=== PATIENT | female | born 1990 | race Caucasian/White ===

== ENCOUNTER 2024-06-30 20:30 | Inpatient (IN) | payer OTHER, SELFPAY ==
[2024-06-30] VITALS (32 sets, daily range): BP systolic 89–188; BP diastolic 58–101; PULSE 68–107; TEMP 36.7–36.8; O2SAT 94–100; BMI 35.2
[2024-06-30 17:59] LABS: Hematocrit 35.3 % (33.0-51.0); Mean Corpuscular HGB Conc 34 gm/dL (32-36); Mean Corpuscular Hemoglobin 28 pg (26-34); Mean Corpuscular Volume 82 fL (80-100); Platelet Count* 253 K/uL (140-440); White Blood Count* 8.93 K/uL (4.50-11.00)
[2024-06-30 18:19] LABS: Alanine Aminotransferase* 17 U/L (4-35); Aspartate Amino Transferase* 27 U/L (12-35); Blood Urea Nitrogen* 9 mg/dL (5-24); Creatinine* 0.6 mg/dL (0.5-1.5); Estimated Glomerular Filt Rate 122 ml/min
[2024-06-30 18:32] LABS: Slide Review Reflex No
[2024-06-30 18:36] LABS: Total Protein Urine 14 mg/dL
[2024-06-30 18:37] LABS: Creatinine Urine 21.2 mg/dL; Protein Creatinine Ratio Urine 0.66 (0-0.19)
[2024-06-30] MEDS: LABETALOL HCL 5 MG/ML inj IVP (19:04)
[2024-06-30] MEDS: MAGNESIUM IV 4 GM/100 ML PIGGYBACK IVPB (19:12)
[2024-06-30] MEDS: LACTATED RINGERS 1000 ML 1,000 ML 200 ML IV (19:12)
--- NOTE | 2024-06-30 19:14 | PM.OBHPLI ---
OB - H&P: HPI Labor/Induction History of Present Illness Date Seen: 06/30/24 Chief Complaint: hypertension Chief complaint: Maternity : 1 Para: 0 Indications for induction: pre-eclampsia Narrative: Stepan Vinson is a 33 year old female 1 para 0 at 39.1 weeks gestation by 8w6d US, who presents with hypertension and headaches. Blood pressures in clinic 144/88 and 148/80, sent to center for rule out pre-Eclampsia. In triage, patient had blood pressures in triage 149/90, 137/83, 150/97 and 161/94. Labs notable for elevated PCR 0.66. Normal Cr 0.6, plt 253, and AST/ALT 27/17. She has had intermittent headaches all week. Denies vision changes. Unfortunately in triage BP was recheck consecutively every 2 minutes after 161/94 with elevating BPs which instigated nursing staff to give labetalol 20mg IV one time. Patient noted to not feel well. BP was recheck and dropped to 89/54. Patient was positioned supine with leftward tilt and given IVF. BP normalized at 127/82. She has had an otherwise uncomplicated . She had a cervical check in clinic: 1.5/20%/-3. Rh positive. GBS negative. Resolution of prior anemia - most recent hemoglobin 12.0 today. She is on lexapro for anxiety. History of Present Dating criteria: based on 1st trimester US only care: good care Ultrasounds: normal 1st trimester US complications: preeclampsia Labs Blood type: A (+) positive Rubella: immune RPR/VDLR: nonreactive GBS status: negative HBsAG: negative Review of Systems Status of ROS: Reports: 10 or more systems reviewed and unremarkable except as noted in History and below Narrative: Denies headache, visual changes, facial edema, epigastric/RUQ pain, N/V, dysuria, or diarrhea. Meds Home Medications and Allergies Home Medications ?Medication ?Instructions ?Recorded ?Confirmed ?Type escitalopram oxalate 10 mg tablet 15 mg PO QAM 06/30/24 06/30/24 History ferrous sulfate 325 mg (65 mg 325 mg PO DAILY 06/30/24 06/30/24 History iron) tablet,delayed release hydroxyzine HCl 25 mg tablet 12.5 - 25 mg PO insomnia 06/30/24 History Allergies Allergy/AdvReac Type Severity Reaction Status Date / Time No Known Drug Allergies Allergy Verified 06/30/24 18:19 OB - H&P: Exam Physical Exam: Vital signs: Temp Pulse BP Pulse Ox 98.3 F 80 127/62 100 06/30/24 17:20 06/30/24 19:12 06/30/24 19:12 06/30/24 17:23 Narrative: Gen: alert, oriented, NAD Heart: Regular rate and rhythm, normal S1 and S2, no murmurs/rubs/gallops Lungs: clear to auscultation bilaterally without crackles or wheezes Abd: gravid, nontender, soft to palpation between contractions Ext: warm, dry, without edema bilaterally Vaginal exam: 1.5 cm / 20 % / -3 / vertex per PCP in clinic Membranes: intact FHT: Baseline: 145-155 bpm Variability: moderate to Acceleration: present Decelerations: absent [place]: NO contractions OB - Results Labs Labs: Short CBC 06/30/24 Range/Units 17:45 WBC 8.93 (4.50-11.00) K/uL Hgb 12.0 (12.0-16.0) gm/dL Hct 35.3 (33.0-51.0) % Plt Count 253 (140-440) K/uL BMP 06/30/24 17:45 BUN 9 Creatinine 0.6 Liver Function 06/30/24 Range/Units 17:45 AST 27 (12-35) U/L ALT 17 (4-35) U/L OB - Problem Based A/P Additional Plan (1) Term : Problem details: Uncomplicated , GBS negative, Rh positive Status: Acute (2) Severe preeclampsia: Problem details: Elevated BP in clinic with associated headaches, max BP in triage 161/94, PCR elevated at 0.66, all other labs normal Status: Acute Plan: - Magnesium for seizure prophylaxis - Labetalol protocol for BP >160 systolic, >110 diastolic, if blood pressure drops significantly we could consider starting with a 10mg dose or transition to alternative therapies - Labs q6h Plan Admit for severe preeclampsia with induction. Anticipate Continuous monitoring Analgesia: PRN, GBS prophylaxis unnecessary Delivery/Labor/Induction Plan Plan: expectant management
[2024-06-30 19:37] LABS: Aspartate Amino Transferase* 40 U/L (12-35)
[2024-06-30] MEDS: MAGNESIUM Infusion 40 GM/1,000 ML IV.SOLN IVPB (19:42)
[2024-06-30] MEDS: miSOPROStoL 25 MCG/0.25 TABLET VAGINAL ×2 (20:06→23:26)
[2024-07-01] VITALS (68 sets, daily range): BP systolic 81–166; BP diastolic 49–101; PULSE 65–171; RESP 14–18; TEMP 36.3–37.2; O2SAT 99–100
[2024-07-01 01:31] LABS: Aspartate Amino Transferase* 25 U/L (12-35)
[2024-07-01] MEDS: miSOPROStoL 25 MCG/0.25 TABLET VAGINAL ×3 (02:37→09:59)
[2024-07-01] MEDS: ACETAMINOPHEN 500 MG TABLET 1000 MG PO ×2 (02:46→07:51)
[2024-07-01 03:11] LABS: Appearance Urine Clear (Clear); Bilirubin Urine Negative (Negative); Blood Urine 1+ (Negative); Color Urine Yellow (Yellow); Glucose Urine Negative (Negative); Ketones Urine Negative (Negative); Leukocyte Esterase Urine Trace (Negative); Nitrite Urine Negative (Negative); Protein Urine Negative (Negative); Urobilinogen Urine 0.2 (0.2-1.0); pH Urine 6.5 (5.0-8.5)
[2024-07-01 03:18] LABS: RBC Urine 0-2 (0-2); WBC Urine 0-2 (0-5)
[2024-07-01 03:19] LABS: Bacteria Urine Few; Squamous Epithelial Cell Urine Few (None-Few)
[2024-07-01] MEDS: LACTATED RINGERS 1000 ML 1,000 ML 75 ML IV (06:50)
--- NOTE | 2024-07-01 06:51 | P.OBPN_ITS ---
Subjective Time Seen by Provider: 06:51 Date Seen: 07/01/24 Narrative: pt just received 4th dose vaginal cytotec. Reports starting feel more contractions, rates 3/10. Has had headache off and on, received Tylenol recently and reports helping. Feels nauseous now. No vomiting. Per RN, BP's below severe range since initial labetalol x 1. 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 -On magnesium -preeclamptic labs [id number], on admit AST 27 then increased 40, most recent 1am down to 25. Repeat labs due again now -4th cytotec given, discussed with pt and nursing plan for further cytotec or pitocin based on clinical response. All ?'s answered -known GBS negative -I updated OB surgeon on today
[2024-07-01] MEDS: ONDANSETRON 2 MG/ML inj 4 MG IV ×3 (06:52→20:30)
[2024-07-01 07:27] LABS: Hematocrit 34.2 % (33.0-51.0); Hemoglobin* 11.7 gm/dL (12.0-16.0); Mean Corpuscular HGB Conc 34 gm/dL (32-36); Mean Corpuscular Hemoglobin 28 pg (26-34); Mean Corpuscular Volume 82 fL (80-100); Platelet Count* 230 K/uL (140-440); Red Blood Count 4.17 m/uL (4.00-5.20); White Blood Count* 8.96 K/uL (4.50-11.00)
[2024-07-01 07:29] LABS: Slide Review Reflex No
[2024-07-01 07:42] LABS: Alanine Aminotransferase* 16 U/L (4-35); Aspartate Amino Transferase* 25 U/L (12-35); Creatinine* 0.6 mg/dL (0.5-1.5); Est. Creatinine Clearance* 116.24; Estimated Glomerular Filt Rate 122 ml/min
[2024-07-01 13:11] LABS: Hematocrit 32.5 % (33.0-51.0); Hemoglobin* 11.4 gm/dL (12.0-16.0); Mean Corpuscular HGB Conc 35 gm/dL (32-36); Mean Corpuscular Hemoglobin 29 pg (26-34); Mean Corpuscular Volume 82 fL (80-100); Platelet Count* 242 K/uL (140-440); Red Blood Count 3.98 m/uL (4.00-5.20); White Blood Count* 9.52 K/uL (4.50-11.00)
[2024-07-01 13:14] LABS: Slide Review Reflex No
[2024-07-01 13:36] LABS: Alanine Aminotransferase* 15 U/L (4-35); Aspartate Amino Transferase* 29 U/L (12-35); Creatinine* 0.6 mg/dL (0.5-1.5); Est. Creatinine Clearance* 116.24; Estimated Glomerular Filt Rate 122 ml/min
[2024-07-01] MEDS: OXYTOCIN 30 unit/500 ML in NS 30 UNIT/500 ML BAG IVPB (14:14)
[2024-07-01] MEDS: MAGNESIUM Infusion 40 GM/1,000 ML IV.SOLN IVPB (15:41)
[2024-07-01] MEDS: LACTATED RINGERS 1000 ML 1,000 ML IV (16:35)
[2024-07-01] MEDS: ROPIVACAINE 0.2% 100 ml 100 ML 12 MG EPIDURAL (16:59)
[2024-07-01] MEDS: BUPIVACAINE 0.25% PF 10 ML 10 ML ML EPIDURAL (17:01)
--- NOTE | 2024-07-01 17:07 | P.ANBPRC_ITS ---
PFSH PFSH Social History What is your current living situation?: I presently have a place to live Problems where you live: no known problems In the past 12 months, utilities in danger of being shut off: no In the past 12 mos, have been you worried that your food would run out before you had money to buy more?: never true In the past 12 mos, the food you bought just didn't last and you didn't have money to buy more?: never true Smoking Status: Never smoker How often does anyone, including family, friends and others, physically hurt you : never How often does anyone, including family, friends and others, insult or talk down to you: never How often does anyone, including family, friends and others, threaten you with harm: never How often does anyone, including family, friends and others, scream or curse at you: never Meds Home Medications and Allergies Home Medications ?Medication ?Instructions ?Recorded ?Confirmed ?Type escitalopram oxalate 10 mg tablet 15 mg PO QAM 06/30/24 06/30/24 History ferrous sulfate 325 mg (65 mg 325 mg PO DAILY 06/30/24 06/30/24 History iron) tablet,delayed release hydroxyzine HCl 25 mg tablet 12.5 - 25 mg PO .PRN insomnia 06/30/24 07/01/24 History Allergies Allergy/AdvReac Type Severity Reaction Status Date / Time No Known Drug Allergies Allergy Verified 06/30/24 18:19 Results Labs Labs: Laboratory Results - last 24 hr 06/30/24 06/30/24 06/30/24 17:31 17:45 18:48 WBC 8.93 RBC 4.30 Hgb 12.0 Hct 35.3 MCV 82 MCH 28 MCHC 34 Plt Count 253 BUN 9 Creatinine 0.6 Estimated Creat Clear Estimated GFR 122 AST 27 40 H ALT 17 Urine Color Urine Appearance Urine pH Ur Specific [place] Urine Protein Urine Glucose (UA) Urine Ketones Urine Blood Urine Nitrite Urine Bilirubin Urine Urobilinogen Ur Leukocyte Esterase Urine RBC Urine WBC Ur Squamous Epith Cells Urine Bacteria Urine Creatinine 21.2 Protein/Creatinin Ratio 0.66 H Urine Total Protein 14 Blood Type Antibody Screen 07/01/24 07/01/24 07/01/24 01:10 02:51 07:04 WBC 8.96 RBC 4.17 Hgb 11.7 L Hct 34.2 MCV 82 MCH 28 MCHC 34 Plt Count 230 BUN Creatinine 0.6 Estimated Creat Clear 116.24 Estimated GFR 122 AST 25 25 ALT 16 Urine Color Yellow Urine Appearance Clear Urine pH 6.5 Ur Specific [place] 1.010 Urine Protein Negative Urine Glucose (UA) Negative Urine Ketones Negative Urine Blood 1+ A Urine Nitrite Negative Urine Bilirubin Negative Urine Urobilinogen 0.2 Ur Leukocyte Esterase Trace A Urine RBC 0-2 Urine WBC 0-2 Ur Squamous Epith Cells Few Urine Bacteria Few A Urine Creatinine Protein/Creatinin Ratio Urine Total Protein Blood Type A Positive Antibody Screen NEGATIVE 07/01/24 12:54 WBC 9.52 RBC 3.98 L Hgb 11.4 L Hct 32.5 L MCV 82 MCH 29 MCHC 35 Plt Count 242 BUN Creatinine 0.6 Estimated Creat Clear 116.24 Estimated GFR 122 AST 29 ALT 15 Urine Color Urine Appearance Urine pH Ur Specific [place] Urine Protein Urine Glucose (UA) Urine Ketones Urine Blood Urine Nitrite Urine Bilirubin Urine Urobilinogen Ur Leukocyte Esterase Urine RBC Urine WBC Ur Squamous Epith Cells Urine Bacteria Urine Creatinine Protein/Creatinin Ratio Urine Total Protein Blood Type Antibody Screen Vital Signs Vital Signs: Last Vital Signs Temp 97.9 F 07/01/24 16:16 Pulse 84 07/01/24 17:05 Resp 16 07/01/24 07:03 BP 133/72 07/01/24 17:05 Pulse Ox 100 07/01/24 16:55 Weight: 93.621 kg Height: 162.56 cm Anesthesia Procedures Epidural Insertion Patient Location: OB Start Time: 16:30 Stop Time: 17:07 Start Date: 07/01/24 Stop Date: 07/01/24 Reason for Block: procedure for pain Patient Position: sitting Performed By: aSvage Morris Preanesthetic Checklist: IV checked, risks and benefits discussed, monitors and equipment checked, pre-op evaluation, timeout performed and anesthesia consent Prep: chlorhexidine gluconate Monitoring: blood pressure monitoring, continuous pulse oximetry and heart rate Approach: midline Vertebral Space: lumbar (1-5) Epidural Technique: BEATRIZ saline Needle Type: Tuohy needle Injection Technique: continuous catheter Needle gauge: 17 Needle Length (cm): 10 cm Needle Insertion Depth (cm): 8 Catheter Gauge: 19 Catheter Type: multi-orifice Catheter at skin depth (cm): 14 Test Dose Result: negative and lidocaine 1.5% with epinephrine 1 to 200,000
[2024-07-01] MEDS: PHENYLEPHRINE 100 MCG/ML SYRINGE IVP ×2 (17:14→17:24)
--- NOTE | 2024-07-01 17:51 | P.OBPN_ITS ---
Subjective Time Seen by Provider: 17:45 Date Seen: 07/01/24 Narrative: pt requested and received epidural, comfortable. feels pressure with contractions. no pain. No headache. +nausea. SROM's with mec fluid around 1556, had few decels around SROM. Then resolved. Had elevated bp's around epidural process in 160's range but repeat each time <160. After epidural, developed hypotension and recurrent late decels. 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
[2024-07-01 18:59] LABS: Hematocrit 35.3 % (33.0-51.0); Hemoglobin* 12.1 gm/dL (12.0-16.0); Mean Corpuscular HGB Conc 34 gm/dL (32-36); Mean Corpuscular Hemoglobin 28 pg (26-34); Mean Corpuscular Volume 82 fL (80-100); Platelet Count* 258 K/uL (140-440); Red Blood Count 4.31 m/uL (4.00-5.20)
[2024-07-01 19:01] LABS: Slide Review Reflex No
[2024-07-01 19:26] LABS: Alanine Aminotransferase* 16 U/L (4-35); Aspartate Amino Transferase* 28 U/L (12-35); Creatinine* 0.6 mg/dL (0.5-1.5); Est. Creatinine Clearance* 116.24; Estimated Glomerular Filt Rate 122 ml/min
--- NOTE | 2024-07-01 22:09 | W.PM.OBVAGDE ---
OB Procedure Vag Delivery Mother Details Mother Details: The patient is a 33 year-old, 1, Para 1, admitted on 06/30/24 at 39 1/7wks gestation for induction due to severe preeclampsia. : 1 Weeks Gestation: 39.2 Admission Date: 06/30/24 Additional Details Amniotic Membrane Status: SROM Amniotic Membrane Rupture Date: 07/01/24 Amniotic Membrane Rupture Time: 15:56 Amniotic Membrane Fluid Description: Meconium Stained Analgesia/Anesthesia Type: Epidural Waterbirth: No Pitcoin: Yes Intrapartal Events: Labor Induction and Distress Induction Method: per misoprostol protocol and per pitocin protocol Labor Onset: 18:30 Complete: 20:33 Pushin:40 Heart: heart tones during second stage were 150's with moderate variability with decels developing after each contraction and then had prolonged decel in 60's and altagracia espinosa called, FHT did recover on hands and knees and taken to OR with another prolonged decel in 60's which recovered Delivery Details Delivery Date: 07/01/24 Delivery Time: 21:19 Route of delivery: vacuum extraction Gender: Female Infant Viability: Alive; Heart Rate Present Delivery Details: The patient is a 33 year-old admitted on 05/31/24 at 39 Weeks, 1 Days gestation for induction due to severe preeclampsia.? Cervical exam on admission was 1 cm with membranes intact in vertex presentation.? She was not chiquis.? heart rate demonstrated a category 1 tracing. She was given cytotec vaginally x 5 doses then started on pitocin. SROM occurred at 1556 with meconium fluid. ? Labor Analgesia:? Epidural ? Pitocin:? Yes ? Labor onset:? 1829 ? Complete:? 2032 ? Pushing:? 2039 ? heart tones during second stage were heart tones during second stage were 150's with moderate variability with decels developing after each contraction and then had prolonged decel in 60's and code francisca called, FHT did recover on hands and knees and taken to OR with another prolonged decel in 60's which recovered. Dr Elly Montoya was present who agreed with attempting vacuum delivery. I applied vacuum and pulled with 1 set contractions/pushing then removed vacuum. FHT reassessed and remained 120's. Vacuum reapplied with next contraction and pt delivered viable female. ? At 2118 a viable female infant delivered in vertex presentation over intact perineum via vacuum assisted vaginal delivery.? was placed on maternal abdomen.? Cord was clamped and cut after a 30 second delay.? taken to warmer.? 7 at 1 minute and 9 at 5 minutes.? Shoulder dystocia: no.? Nuchal cord: no. Infant weight 7#11oz ? Placenta delivered spontaneously and complete with a 3 vessel cord. ? Mother and infant were stable after delivery. ? Lacerations:? periurethral, repaired with 4-0 vicryl. ? Blood loss: 200 mL. Blood loss measurement type: EBL ? Sponge and needles counts are correct. 1 Minute Interval Total Score: 7 5 Minute Interval Total Score: 9 Event Summary Status: Mother and were stable after delivery.
[2024-07-02] VITALS (12 sets, daily range): BP systolic 116–136; BP diastolic 72–88; PULSE 72–92; RESP 16–18; TEMP 36.5–36.9; O2SAT 98–100
[2024-07-02 01:03] LABS: Hematocrit 34.6 % (33.0-51.0); Hemoglobin* 11.9 gm/dL (12.0-16.0); Mean Corpuscular HGB Conc 34 gm/dL (32-36); Mean Corpuscular Hemoglobin 28 pg (26-34); Mean Corpuscular Volume 82 fL (80-100); Platelet Count* 246 K/uL (140-440); Red Blood Count 4.21 m/uL (4.00-5.20); White Blood Count* 15.57 K/uL (4.50-11.00)
[2024-07-02 01:05] LABS: Slide Review Reflex No
[2024-07-02] MEDS: ACETAMINOPHEN 500 MG TABLET 1000 MG PO ×3 (01:19→17:01)
[2024-07-02 01:31] LABS: Aspartate Amino Transferase* 27 U/L (12-35); Creatinine* 0.6 mg/dL (0.5-1.5); Est. Creatinine Clearance* 116.24; Estimated Glomerular Filt Rate 122 ml/min
[2024-07-02 01:50] LABS: Alanine Aminotransferase* 22 U/L (4-35)
[2024-07-02 07:06] LABS: Hematocrit 33.9 % (33.0-51.0); Hemoglobin* 11.7 gm/dL (12.0-16.0); Mean Corpuscular HGB Conc 35 gm/dL (32-36); Mean Corpuscular Hemoglobin 28 pg (26-34); Mean Corpuscular Volume 82 fL (80-100); Platelet Count* 262 K/uL (140-440); Red Blood Count 4.13 m/uL (4.00-5.20); White Blood Count* 14.34 K/uL (4.50-11.00)
[2024-07-02 07:07] LABS: Slide Review Reflex No
[2024-07-02 07:26] LABS: Alanine Aminotransferase* 15 U/L (4-35); Aspartate Amino Transferase* 26 U/L (12-35); Creatinine* 0.6 mg/dL (0.5-1.5); Est. Creatinine Clearance* 116.24; Estimated Glomerular Filt Rate 122 ml/min
--- NOTE | 2024-07-02 08:15 | PM.OBPNVD1 ---
OB - PN:Subj Subjective Date Seen: 07/02/24 Interval history: Stepan is a 33 yo pp day #1 with severe preeclampsia. She is doing well this morning. Has some pain with urination due to a periurethral laceration, but is otherwise feeling better this morning. Swelling in legs has decreased significantly. No concerns this morning. Patient comments OB post-: no complaints and pain well controlled [place] infant status: and doing well [place] feeding status: exclusively OB - PN: Obj Exam Physical Exam: Vital signs: Temp Pulse Resp BP Pulse Ox O2 Del Method 97.9 F 84 18 130/80 99 Room Air 07/02/24 03:03 07/02/24 06:38 07/02/24 03:03 07/02/24 06:38 07/01/24 23:27 07/02/24 03:03 Constitutional: Constitutional: no acute distress Routine Abdominal Exam: Fundus: Present firm Comments: 2 cm below umbilicus Detailed Lower Extremity Exam: Comments: no swelling in LEs Routine Neurological Exam: Neurological: Present alert OB - PN: Obj Data Labs Labs: Laboratory Results - last 24 hr 07/01/24 07/01/24 07/02/24 12:54 18:46 00:55 WBC 9.52 11.20 H 15.57 H RBC 3.98 L 4.31 4.21 Hgb 11.4 L 12.1 11.9 L Hct 32.5 L 35.3 34.6 MCV 82 82 82 MCH 29 28 28 MCHC 35 34 34 Plt Count 242 258 246 Creatinine 0.6 0.6 0.6 Estimated Creat Clear 116.24 116.24 116.24 Estimated GFR 122 122 122 AST 29 28 27 ALT 15 16 22 07/02/24 06:58 WBC 14.34 H RBC 4.13 Hgb 11.7 L Hct 33.9 MCV 82 MCH 28 MCHC 35 Plt Count 262 Creatinine 0.6 Estimated Creat Clear 116.24 Estimated GFR 122 AST 26 ALT 15 OB - PN: A/P Delivery Assessment and Plan (1) Term : Problem details: Uncomplicated , GBS negative, Rh positive Status: Acute (2) Severe preeclampsia: Problem details: Elevated BP in clinic with associated headaches, max BP in triage 161/94, PCR elevated at 0.66, all other labs normal Status: Acute Plan day: 1 Plan: routine care Comments: Continue mag to complete 24 hours. Discussed BP management, but so far BPs below treatment levels. Labs are normal. Likely discharge 07/04 if continues to do well
[2024-07-02] MEDS: DOCUSATE SODIUM 100 MG CAPSULE PO (08:30)
--- NOTE | 2024-07-02 10:26 | PM.ANPOST ---
Post Anesthesia Note Post Anesthesia Note Patient seen: Inpatient Respiratory Status: adequate Cardiovascular Status: adequate Mental Status: baseline Pain: adequate Temp: baseline Anesthetic awareness: N/A Complications: none Follow care: none
[2024-07-02] MEDS: MAGNESIUM Infusion 40 GM/1,000 ML IV.SOLN IVPB (12:03)
[2024-07-02] MEDS: IBUPROFEN 600 MG TABLET PO ×2 (12:57→20:37)
[2024-07-03] VITALS (9 sets, daily range): BP systolic 113–157; BP diastolic 74–97; PULSE 60–78; RESP 16–18; TEMP 36.6–36.9; O2SAT 97
[2024-07-03 02:37] LABS: Rapid Plasma Reagin (RPR) Non Reactive (Non Reactive)
[2024-07-03] MEDS: DOCUSATE SODIUM 100 MG CAPSULE PO (09:52)
[2024-07-03] MEDS: ACETAMINOPHEN 500 MG TABLET 1000 MG PO ×2 (09:52→15:59)
--- NOTE | 2024-07-03 10:54 | PM.OBPNVD1 ---
OB - PN:Subj Subjective Date Seen: 07/03/24 Interval history: Stepan is a 33 yo pp day #2 with severe preeclampsia. She is doing well this morning. She is feeling better this morning. Swelling in legs has decreased significantly. Nursing is going ok, having some difficulty with latch, but otherwise no concerns. She has been on lexapro in the past, and is wanting to start this post . Patient comments OB post-: no complaints status: [place] feeding status: exclusively OB - PN: Obj Exam Physical Exam: Vital signs: Temp Pulse Resp BP Pulse Ox O2 Del Method 98.1 F 60 17 137/84 97 Room Air 07/03/24 09:19 07/03/24 09:19 07/03/24 09:19 07/03/24 09:19 07/03/24 09:19 07/03/24 09:19 Constitutional: Constitutional: no acute distress Routine Abdominal Exam: Abdominal: Present soft Fundus: Present firm Comments: 2 cm below umbilicus Routine Psychiatric Exam: Psychiatric: Present normal affect and normal thought process OB - PN: Obj Data Labs Labs: Laboratory Results - last 24 hr 07/01/24 01:10 RPR Screen Non Reactive OB - PN: A/P Delivery Assessment and Plan (1) Term : Problem details: Uncomplicated , GBS negative, Rh positive Status: Acute (2) Severe preeclampsia: Problem details: Elevated BP in clinic with associated headaches, max BP in triage 161/94, PCR elevated at 0.66, all other labs normal Status: Acute Assessment and Plan: Will continue to monitor until off mag x24 hours. Continue close BP monitoring and would start antihypertensives for consistent BPs >135/90 Plan day: 2 Plan: routine care Comments: Likely d/c tomorrow morning if doing well
[2024-07-03] MEDS: NIFEdipine 30 MG TAB.ER.24 PO ×2 (14:06→23:48)
[2024-07-03] MEDS: IBUPROFEN 600 MG TABLET PO (23:41)
[2024-07-04] VITALS (16 sets, daily range): BP systolic 122–155; BP diastolic 75–96; PULSE 68–88; RESP 16–18; TEMP 36.6–37; O2SAT 97–98
[2024-07-04 06:19] LABS: Hematocrit 39.5 % (33.0-51.0); Hemoglobin* 13.3 gm/dL (12.0-16.0); Mean Corpuscular HGB Conc 34 gm/dL (32-36); Mean Corpuscular Hemoglobin 28 pg (26-34); Mean Corpuscular Volume 83 fL (80-100); Platelet Count* 281 K/uL (140-440); Red Blood Count 4.74 m/uL (4.00-5.20); White Blood Count* 10.06 K/uL (4.50-11.00)
[2024-07-04 06:20] LABS: Slide Review Reflex No
[2024-07-04 06:34] LABS: INR 0.82 (0.91-1.10); Prothrombin Time 11.8 Seconds
[2024-07-04 06:35] LABS: Partial Thromboplastin Time* 27 Seconds (23-33)
[2024-07-04 06:40] LABS: Fibrinogen* 642 mg/dL (200-450)
[2024-07-04 06:42] LABS: Alanine Aminotransferase* 20 U/L (4-35); Aspartate Amino Transferase* 32 U/L (12-35); Blood Urea Nitrogen* 12 mg/dL (5-24); Creatinine* 0.6 mg/dL (0.5-1.5); Est. Creatinine Clearance* 116.24; Estimated Glomerular Filt Rate 122 ml/min
--- NOTE | 2024-07-04 08:01 | PM.OBDSVD1 ---
DS: Providers Provider Date Seen: 07/04/24 Date of admission: 06/30/24 20:30 Primary care physician: Not a Local Provider Admitting Clinician: Jana Pack DO Attending Physician on discharge: Jana Pack DO DS: Diagnosis Discharge Diagnosis (1) Vaginal delivery: Status: Acute (2) Severe preeclampsia: Status: Acute Problem details: Elevated BP in clinic with associated headaches, max BP in triage 161/94, PCR elevated at 0.66, all other labs normal (3) Term : Status: Acute Problem details: Uncomplicated , GBS negative, Rh positive Exam Const: Vital Signs, click to edit/add: Vital Signs - 24 hr 07/03/24 09:19 07/03/24 13:15 07/03/24 13:30 Temperature 98.1 F 98.5 F Pulse Rate [Pulse Oximeter] 60 78 Respiratory Rate 17 17 Blood Pressure [Le ft Arm] 137/84 157/92 H 156/83 H Pulse Oximetry 97 97 Oxygen Delivery Me thod Room Air Room Air 07/03/24 15:28 07/03/24 16:36 07/03/24 21:03 Temperature 98.3 F Pulse Rate [Pulse Oximeter] 74 74 Respiratory Rate 16 18 Blood Pressure [Le ft Arm] 152/97 H 131/80 113/83 Pulse Oximetry 97 Oxygen Delivery Me thod Room Air Room Air 07/03/24 23:35 07/03/24 23:42 07/04/24 02:35 Temperature 97.9 F 98.6 F Pulse Rate [Pulse Oximeter] 78 88 Respiratory Rate 18 18 Blood Pressure [Le ft Arm] 143/86 H 144/86 H 146/88 H Pulse Oximetry 97 Oxygen Delivery Me thod Room Air Room Air 07/04/24 02:52 07/04/24 04:30 Temperature Pulse Rate [Pulse Oximeter] Respiratory Rate Blood Pressure [Le ft Arm] 144/89 H 122/75 Pulse Oximetry Oxygen Delivery Me thod Common normals: no apparent distress, average body habitus and oriented x3 Resp: Common normals: normal respiratory effort GI: Common normals: Normal to inspection, nondistended, normoactive bowel sounds present and soft to palpation Palpation: soft Other: Uterus firm 2 cm below umbilicus Extremity: Common normals: normal to inspection, full ROM and no pedal edema Neuro: Common normals: oriented x3 Psych: Common normals: mental status grossly normal and speech normal Appearance: grossly normal Attitude: engaged Activity/motor behavior: appropriate eye contact Speech: normal speech Skin: Nails: no Beau's lines OB - DS: Summary Hospital Course Hospital Course: The patient is a 33 year old G 1 P 1 at 39 weeks gestation that was admitted to the Center on 06/30/24 for IOL for preeclampsia. She had an complicated, vacuum assisted vaginal delivery. She delivered a viable female infant. She is breast feeding. Starting yesterday afternoon, BPs have been above goal (typically 140s/80s) and nifedipine 30 mg x2 doses have been given with improvement in pressures. Her pre-e labs remain normal and she has no signs/sx severe features. Peripartum Data delivery method: Vacuum Laceration description: Periurethral - 1st Degree complications: none Echo Gender: Female Discharge Plan: Home Infant A Infant Gender: Female Infant Discharge Plan: Home Status at Discharge Functional status at discharge: independent ambulation Overall status at discharge: patient is progressing back to baseline Time Spent with Patient Time attestation: Total time spent providing and/or coordinating discharge services: Discharge Plan Discharge Disposition: Home, Self-Care Date of Admission: 06/30/24 20:30 Attending Provider on Discharge: Marli River Primary Care Provider: Provider,Not a Local Condition: Improved Anticipated Discharge Date/Time: 07/04/24 14:06 Discharge Medications: New nifedipine 30 mg Tablet Extended Release 24hr 60 mg PO DAILY Qty: 60 0RF escitalopram oxalate 10 mg Tablet 10 mg PO DAILY Qty: 90 0RF Discontinued hydroxyzine HCl 25 mg tablet 12.5 - 25 mg PO .PRN ferrous sulfate 325 mg (65 mg iron) tablet,delayed release (DR/EC) 325 mg PO DAILY escitalopram oxalate 10 mg tablet 15 mg PO QAM Discharge Orders: Discharge Order (Routine); Ordered 07/04/24 Ordered By: Marli River Patient Education: OB Vaginal/Breast Feeding Activity Level: No Restrictions Activity Detail: nothing per vagina x6 weeks Discharge Diet: Regular Follow Up Appointments: Provider,Not a Local [Primary Care Provider] - Jana Pack DO [Staff Physician] - (Follow up in 6 weeks) Forms: [employer] Info Instructions
[2024-07-04] MEDS: NIFEdipine 30 MG TAB.ER.24 60 MG PO (09:58)
[2024-07-04] MEDS: DOCUSATE SODIUM 100 MG CAPSULE PO (09:59)
[2024-07-04] MEDS: ESCITALOPRAM 10 MG TABLET PO (09:59)
[2024-07-04] MEDS: LABETALOL HCL 100 MG TABLET PO ×2 (13:30→15:56)
[2024-07-04] MEDS: LABETALOL HCL 100 MG TABLET 200 MG PO (20:18)
[2024-07-05 02:26] VITALS: BP 126/77; PULSE 82; RESP 18; TEMP 36.6
[2024-07-05 05:30] VITALS: BP 134/78; PULSE 88; RESP 18; TEMP 36.6
--- NOTE | 2024-07-05 07:48 | P.DS_ITS ---
DS: Providers Provider Date Seen: 07/05/24 Date of admission: 06/30/24 20:30 Admitting Clinician: Jana Pack DO Date of Discharge: 07/05/24 Exam Const: Vital Signs, click to edit/add: Vital Signs - 24 hr 07/04/24 08:00 07/04/24 09:00 07/04/24 11:00 Temperature 97.8 F Pulse Rate [Pulse Oximeter] 81 Respiratory Rate 18 Blood Pressure [Le ft Arm] 143/83 H 142/90 H 147/88 H Pulse Oximetry 97 Oxygen Delivery Me thod Room Air 07/04/24 11:30 07/04/24 12:08 07/04/24 12:57 Temperature Pulse Rate [Pulse Oximeter] Respiratory Rate Blood Pressure [Le ft Arm] 138/83 138/86 155/90 H Pulse Oximetry Oxygen Delivery Me thod 07/04/24 13:13 07/04/24 14:30 07/04/24 15:40 Temperature 98.0 F Pulse Rate [Pulse Oximeter] 68 79 Respiratory Rate 16 Blood Pressure [Le ft Arm] 153/93 H 151/96 H 143/80 H Pulse Oximetry 98 Oxygen Delivery Me thod Room Air 07/04/24 17:36 07/04/24 20:17 07/04/24 21:34 Temperature 97.8 F 98.2 F Pulse Rate [Pulse Oximeter] 72 75 Respiratory Rate 16 16 Blood Pressure [Le ft Arm] 138/76 134/77 131/78 Pulse Oximetry 98 Oxygen Delivery Me thod Room Air Room Air 07/04/24 23:30 07/05/24 02:26 07/05/24 05:30 Temperature 98.6 F 97.9 F 97.9 F Pulse Rate [Pulse Oximeter] 77 82 88 Respiratory Rate 18 18 18 Blood Pressure [Le ft Arm] 137/76 126/77 134/78 Pulse Oximetry Oxygen Delivery Me thod Room Air Room Air Room Air Common normals: no apparent distress, average body habitus and oriented x3 Resp: Common normals: normal respiratory effort and clear to auscultation bilaterally Auscultation: clear to auscultation bilaterally Cardio: Common normals: regular rate and regular rhythm Rate: regular rate Rhythm: regular rhythm GI: Common normals: Normal to inspection, nondistended, normoactive bowel sounds present and soft to palpation Palpation: soft Other: Uterus firm 2 cm below umbilicus Extremity: Common normals: normal to inspection, full ROM and no calf tenderness Other: 1+ pitting edema in b/l LEs Neuro: Common normals: oriented x3, moves all extremities, no focal motor deficits and no sensory deficits noted Psych: Common normals: mental status grossly normal and speech normal Appearance: grossly normal Attitude: engaged Activity/motor behavior: appropriate eye contact Speech: normal speech OB - DS: Summary Hospital Course Hospital Course: The patient is a 33 year old G 1 P 1 that was admitted to the Center on 06/30/24 for IOL for severe preeclampsia. She had an complicated, vacuum assisted vaginal delivery on 07/01/24 at 39.6 weeks' gestation. She delivered a viable female infant. She is breast feeding. On PPD 2, blood pressures started increasing. Nifedipine was initiated and labetalol was subsequently added, which has resulted in improved BP control (< 140/90). She has been without s/sx of severe features. She is diuresing well. Peripartum Data delivery method: Vacuum [place] Infant Gender: Female Discharge Plan: Home A Infant Gender: Female Infant Discharge Plan: Home Status at Discharge Functional status at discharge: independent ambulation Time Spent with Patient Time attestation: Total time spent providing and/or coordinating discharge services: Discharge Plan Discharge Disposition: Home, Self-Care Date of Admission: 06/30/24 20:30 Attending Provider on Discharge: Marli River Primary Care Provider: Provider,Not a Local Condition: Improved Anticipated Discharge Date/Time: 07/04/24 14:06 Discharge Medications: New nifedipine 30 mg Tablet Extended Release 24hr 60 mg PO DAILY Qty: 60 0RF escitalopram oxalate 10 mg Tablet 10 mg PO DAILY Qty: 90 0RF labetalol 200 mg tablet 200 mg PO BID Qty: 60 2RF Discontinued hydroxyzine HCl 25 mg tablet 12.5 - 25 mg PO .PRN ferrous sulfate 325 mg (65 mg iron) tablet,delayed release (DR/EC) 325 mg PO DAILY escitalopram oxalate 10 mg tablet 15 mg PO QAM Discharge Orders: Discharge Order (Routine); Ordered 07/05/24 Ordered By: Marli River Patient Education: OB High Blood Pressure DC, OB Over the Counter Medication Information, OB Vaginal/Breast Feeding Activity Level: No Restrictions Activity Detail: nothing per vagina x6 weeks Discharge Diet: Regular Follow Up Appointments: Provider,Not a Local [Primary Care Provider] - Jana Pack DO [Staff Physician] - (Follow up in 6 weeks) Forms: [facility] Info Instructions
[2024-07-05 08:32] VITALS: BP 133/86; PULSE 77; RESP 16; TEMP 36.9; O2SAT 97
[2024-07-05] MEDS: LABETALOL HCL 100 MG TABLET 200 MG PO (09:00)
[2024-07-05] MEDS: NIFEdipine 30 MG TAB.ER.24 60 MG PO (09:00)
[2024-07-05] MEDS: ESCITALOPRAM 10 MG TABLET PO (09:01)
[2024-07-05] MEDS: DOCUSATE SODIUM 100 MG CAPSULE PO (09:01)
[2024-07-05 13:13] VITALS: BP 136/80; PULSE 80; RESP 16; TEMP 37; O2SAT 96
== END 2024-07-05 13:40 | disposition home or self-care (01) | DRG 807 ==
LOC: OB OUT 07-01 06:07 → OB 07-02 12:54
PROVIDERS: Family Medicine; Admitting Provider Student in an Organized Health Care Education/Training Program; Visit Provider Family Medicine
DX: O14.14 Severe pre-eclampsia complicating childbirth (principal); Z37.0 Single live birth; Z3A.39 39 weeks gestation of pregnancy; O71.82 Other specified trauma to perineum and vulva; O77.0 Labor and delivery complicated by meconium in amniotic fluid; O99.344 Other mental disorders complicating childbirth; F41.9 Anxiety disorder, unspecified; O76 Abnormality in fetal heart rate and rhythm complicating labor and delivery
CPT/HCPCS: 01967; 36415; 59200; 81001; 82565; 82570; 84156; 84450; 84460; 84520; 85025; 85027; 85384; 85610; 85730; 86592; 86850; 86900; 86901; 87086; 88307; G0463; A9270; J0665; J2371; J2405; J2795; J3475; J7120

== ENCOUNTER 2024-07-07 14:31 | Outpatient (CLI) | payer OTHER, SELFPAY ==
--- NOTE | 2024-07-07 15:48 | W.PM.LAC.MC ---
Consult Note - Mom Date of Visit Date of visit: 07/07/24 Reason for consultation: Assistance Needed Visit Code: Visit Patient's Information Phone number: [phone] : 1 Para: 1 Allergies No Known Drug Allergies Allergy (Verified 06/30/24 18:19) Mother's medical history: Other (followed for preE symptoms) Mother's Medical History: Medical History (Updated 07/04/24 @ 08:02 by Marli River MD) Vaginal delivery ?O80 - Encounter for full-term uncomplicated delivery (ICD-10) Work Plans: Return to work in October, Delivery Information Delivery type: Vaginal Gestational Age: 39+2 Gestational Weight For Age: AGA Weight: 3.49 kg Discharge Weight: 3.172 kg Percentage weight loss: 9.11 Baby's Information Baby's Age at Visit: 6 days Baby's Provider or Clinic: [facility] Jaundice: No Past Experience Past Experience: No Current Frequency of Day Feedings: every 3 hours day and night Both Breasts: Yes (offered, sometimes just drinks from one side) Suck: good per mom, strong Latch: comfortable Length of Time: 15 min on , december 5-10 on if she takes Goals: 1 year Pumping Pumping: Yes (just a little when needed for comfort or to do a syringe feeding) Quantity Pumped: 30ml or less Supplementing EBM Supplement: Yes (occasional) Formula Supplement: No Baby Elimination Number of Wet Diapers a Day: ea feeding Number of BM a Day: 5-6, yellow in color Breast/Nipple Condition Breast Information: Breasts are symmetrical with rounded lower quadrants, intramammary distance is less than 1.5 inches. No erythema. Nipples are supple, everted prior to feeding. Breast Shape: Round, Firm and Other (softens after nursing) Engorgement: No Maternal Nipple Condition - Left: Common Nipple Maternal Nipple Condition - Right: Common Nipple Sore Nipples: Yes (very minimal) Interventions for Sore Nipples: Lansinoh/Nipple Cream Baby Assessment Skin: Normal Tongue/frenulum: Normal/elastic Palate: Average Lips: Relaxed and Symmetrical Jaw Alignment: Symmetrical Mucosa: Mooar, moist Onsite Observation Pre-Feed weight: 3.28 kg (up 1/2 oz from weight at clinic yesterday) Post-Feed weight: 3.362 kg Milk Transferred (mL): 82 (nursed 12 min on left breast, then 10 min on right breast) Position: Cross cradle Attachment/latch-on achieved: Easily Suck pattern: Suck burst and normal rest Swallow: Audible, consistent Behavior following feed: Alert, content Pre-Nursing Left Nipple: Within Normal Limits Pre-Nursing Right Nipple: Within Normal Limits Post-Nursing Left Nipple: Within Normal Limits Post-Nursing Right Nipple: Within Normal Limits Assessments/Interventions Assessments/Interventions: Worked with mom/reviewed asymmetrical latch technique for a wide, deep latch and mom reports increased comfort with this. Discussed normals of ; milk coming in, regulation of supply, use of pump to relieve fullness if needed, but not to pump every feeding if not needed to prevent over supply. Cool packs after feeding may help breast congestion and reduce need for pumping if needed. Reassurance given to mom and dad that baby is doing quite well, especially since it took her 3.5 days to latch to the breast for the first time. Transferred 42 ml from LEFT breast in 12 minutes, then 40ml from RIGHT breast in another 10 minutes; excellent feeding for 6 day old baby Education provided: Early feeding cues to maximize timing of latching, Asymmetric latch technique for wide/deep latch to increase milk, Transfer for baby and increase comfort for mom, Supply/demand nature of milk supply, Need for frequent stimulation/milk removal, Sore nipple treatment options, Alternative feeding methods (SNS, cup, finger feeding, bottling) and Pumping for milk management Follow-Up Suggested follow up: Appointment as needed Recommend baby be seen by provider for:: regular well visits Recommend mom be seen by provider for:: next scheduled appointment Time Spent Time spent with patient (min): 75 Meds Home Medications and Allergies Allergies Allergy/AdvReac Type Severity Reaction Status Date / Time No Known Drug Allergies Allergy Verified 06/30/24 18:19
== END 2024-07-07 14:32 | disposition home or self-care (01) ==
LOC: OB LAC 14:34
PROVIDERS: PCP Family Medicine; Visit Provider Family Medicine
DX: Z39.1 Encounter for care and examination of lactating mother (principal)
CPT/HCPCS: G0463

== ENCOUNTER 2024-12-04 18:05 | Emergency (ER) | payer OTHER, SELFPAY ==
--- OUTSIDE RECORDS SUMMARY | 2024-12-04 18:07 | XMS_ITS | Clinical Summary ---
Author Organization [facility] Address [address] [place] [address] Care Team Providers Care [facility] Or Nursery Transplanter Name Role Phone Unavailable Primary Care Provider Unavailabl e Source Comments Patient records contain information from all sites at [facility]. For routine questions regarding patient records, call [phone] during business hours, M-F 8:00 AM - 5:00 PM Central Time. Record requests for emergency care only can be directed to [phone] at any time.[facility] Allergies Active Allergy Reactions Criticality Noted Date Comments Cefaclor Other (see comments) 09/21/2002 Cannot recall reaction; was an infant Medications escitalopram (LEXAPRO) 10 mg tablet Take 10 mg by mouth daily. 06/20/2023 Active biotin 1 mg tablet Take 1 tablet by mouth daily. Active oqadoqr-Mj-otme -FA 27 mg iron- 1 mg tablet Take 1 tablet by mouth daily. Active melatonin 3 mg tablet Take 3 mg by mouth at bedtime as needed. Active magnesium 200 mg tablet Take 200 mg by mouth every morning before breakfast. Active propranoloL (INDERAL) 10 mg tablet Take 10 mg by mouth as needed. 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 10/23/2023 Polycystic Ovary Syndrome 07/17/2023 Fatigue 07/17/2023 Depressed Libido 07/17/2023 Immunizations Immunization Administration Dates Next Due 4vHPV (discontinued) 10/13/2007,06/05/2007,03/27 DT, Pediatric 02/09/2004 DTP 04/16/1993, 2,02/24/1992,1991 HepB Pediatric/Adolescent 11/27/2004,03/14/2004, 02/09/2004 Hib (HbOC) (discontinued) 01/30/1993,,02/24/1992,1991 Influenza TIV (IM) 08/20/2012,05/12/2009 MCV4 (Menactra)(Discontinued) 03/27/2007 MMR 02/09/2004,01/30/1993 OPV 04/15/1996, 3,02/24/1992,1991 SARS-COV-2 (COVID-19) - PFIZ ER (Discontinued)(12 years or older) 10/21/2023(Deferred: Patient decision) Td Preservative Free (TENIVA C, DECAVAC) 02/09/2004 Tdap 02/02/2019,06/01/2009 influenza vaccine quad (FLUZONE/FLUARIX) (6 months and older)(PF) 10/23/2023(Deferred: Patient decision) Social History Tobacco Use Types Packs/Day Years Used Date Smoking Tobacco: Never Passive Smoke Exposure: Never Smokeless Tobacco: Never Tobacco Cessation:Counseling Given: Not Answered [facility] Utilities Answer Date Recorded In the past 12 months has th e [employer], gas, oil, or water [employer] threatened to shut off services in your home? No 10/22/2023 Exercise Vital Sign Answer Date Recorde d On average, how many days pe r week do you engage in moderate to strenuous exercise (like a brisk walk)? 4 days 10/22/2023 On average, how many minutes do you engage in exercise at this level? 30 min 10/22/2023 Hunger Vital Sign Answer Date Recorded Within the past 12 months, y ou worried that your food would run out before you got the money to buy more. Never true 10/22/19 24 Within the past 12 months, t he food you bought just didn't last and you didn't have money to get more. Never true 10/22/2023 PRAPARE - Transportation Answer Date Re corded In the past 12 months, has l ack of transportation kept you from medical appointments or from getting medications? No 01/2024 In the past 12 months, has l ack of transportation kept you from meetings, work, or from getting things needed for daily living? No 10/22/2023 Nutrition Answer Date Recorded Nutrition: EVOO Fat Source Unknown 10/21 On average, how many serving s of fruits and vegetables do you eat per day (serving size is equal to 1 cup or approximately the size of a tennis ball)? 0-2 10/22/2023 Dental Answer Date Recorded Dental: Regular Dentist Yes 10/22/19 Employment Answer Date Recorded Employment status Employed and actively working without restrictions 10/22/2023 Housing Stability Answer Date Recorded What is your living situation today? I have a [facility] place to live 10/22/2023 Comments No Sex and Gender Information Value Date Recorded Sex Assigned at Female 07/24/2023 8:16 AM [employer] Legal Sex Female 2:12 PM [employer] Gender Identity Female 07/24/2023 8:16 AM [employer] Sexual Orientation Straight 07/24/2023 8: 16 AM [employer] WORK[employer] Last Filed Vital Signs Vital Sign Reading Time Taken Comments Blood Pressure 125/83 10/23/2023 9:17 AM [employer] Pulse 73 10/23/2023 9:17 AM [employer] Temperature - - Respiratory Rate 16 09/09/2016 2:35 PM [employer] Oxygen Saturation - - Inhaled Oxygen Concentration - - Weight 76.1 kg (167 lb 12.3 oz) 10/23/2023 9:17 AM [employer] Height 163.4 cm (5' 4.33) 10/23/2023 9:17 AM CS T Body Mass Index 28.5 10/23/2023 9:17 AM [employer] Plan of Treatment Health Maintenance Due Date Last Done Comments HIV Screening 1991 Hepatitis C Screening 1991 COVID-19 Vaccine ( - season) 2024 Influenza Vaccine (#1) 2024 08/20/2012, 2008 Depression Screening (Annual PHQ-2) 08/18/2024 Cervical/Vaginal Cancer Screening 12/16/2025 12/16/2022 (Performed elsewhere) DTaP,Tdap,and Td Vaccines (9 - Td or Tdap) 02/02/2029 02/02/2019, 06/01/2009, 02/09/2004, Additional history exists IPV Vaccines Completed 04/15/1996, 03/20, 02/24/1992, Additional history exists Hepatitis B Vaccines Completed 11/27/2004, 03/14/2004, 02/09/2004 HPV Vaccines Completed 10/13/2007, 05/18, 03/27/2007 Hepatitis B Screening Discontinued 11/12/2023 Pneumococcal vaccine (0-49 years) Aged Out No longer eligible based on patient's age to complete this topic Medical Devices Implanted Type Area Organ Fixer Device Identifier Shelf Expiration Date Model / Serial / Lot Acl/Meniscus Repair Hardware e.g. pins/screws/ rods Left: Knee Insurance [facility]
--- OUTSIDE RECORDS SUMMARY | 2024-12-04 18:07 | XMS_ITS | Clinical Summary ---
Author Organization [facility] Address [address] [place] [id number] Care Team Providers Care Matcher [employer] Name Role Phone Hailey Dumas Primary Care Provider Darci Rodriguesmed DO Unavailable [phone] Allergies Active Allergy Reactions Criticality Noted Date Comments Cefaclor *Unknown - Childhood Rxn Unknown 03/27/2007 Medications bjmdfqi-olxu-nhgf c acid (PREPLUS;NATALCAR E PLUS) 27 mg iron- 1 mg tablet Take 1 Tablet by mouth once daily. Active Breast Pump PurchaseIndicatio ns: () Electric breast pump for home use. HOLA 07/06/24. Reason for need: breastfeedin g. Length of need: 99 months (lifetime use) 1 Each 05/13/20 24 Active norethindrone, Contraceptive, (MICRONOR, 28,) 0.35 mg tabletIndications :Encounter for initial prescription of contraceptive pills Take 1 Tablet (0.35 mg) by mouth once daily. 90 Tablet 3 08/19/19 25 Active escitalopram oxalate (LEXAPRO) 20 mg tabletIndications :Anxiety Take 1 Tablet (20 mg) by mouth once daily in the morning. 90 Tablet 3 09/01/19 25 Active labetaloL (TRANDATE) 100 mg tabletIndications :Severe pre-eclampsia, condition or complication (HC) Take 1 Tablet (100 mg) by mouth two times daily. 180 Tablet 3 10/29/19 25 Active NIFEdipine 30 mg extended-release tabletIndications :Severe pre-eclampsia, condition or complication (HC) Take 2 Tablets by mouth once daily before a meal 180 Tablet 11/16/19 25 Active NIFEdipine (PROCARDIA XL) 30 mg extended-release tabletIndications :Severe pre-eclampsia, condition or complication (HC) Take 2 Tablets (60 mg) by mouth once daily before a meal. 60 Tablet 08/05/20 24 025 Discontinued Active Problems Problem Noted Date Diagnosed Date Familial cardiomyopathy 02/12/2024 Primigravida in first trimester 12/17/2023 Overview (06/10/2024): HOLA at 07/06/24 by LMP c/with 8w6d US Patient's last menstrual period was 09/30/2023 (exact date). GBS: 28wk labs: GLUCOSE,GESTATIONAL Date Value Ref Range Status 04/01/2024 72 70 - 139 mg/dL Final HEMOGLOBIN Date Value Ref Range Status 04/01/2024 10.4 (L) 12.0 - 16.0 g/dL Final TREPONEMA PALLIDUM Date Value Ref Range Status 04/01/2024 Non-Reactive Non-Reactive Final Last Tdap: 05/13/24 Last RSV: 05/13/24 Last Flu vaccine: 2012 OB Labs: ABORH Date Value Ref Range Status 11/12/2023 A Rh Positive Final ANTIBODY SCREEN Date Value Ref Range Status 11/12/2023 Negative Negative Final TREPONEMA PALLIDUM Date Value Ref Range Status 11/12/2023 Non-Reactive Non-Reactive Final RUBELLA IGG ANTIBODY Date Value Ref Range Status 11/12/2023 1.87 >=1.00 Index Final INTERPRETATION Date Value Ref Range Status 11/12/2023 Positive Final Comment: Presence of detectable IgG antibodies. A positive result generally indicates exposure to the virus or previous vaccination, but is not an indication of active infection or stage of disease. 11/12/2023 Positive Final Comment: Presence of detectable IgG antibodies. A positive result generally indicates exposure to the virus or previous vaccination, but is not an indication of active infection or stage of disease. HBSAG Date Value Ref Range Status 11/12/2023 Nonreactive Nonreactive Final HEPATITIS C ANTIBODY Date Value Ref Range Status 11/12/2023 Non-Reactive Non-Reactive Final Comment: Please note, per www.CDC.gov: If a patient is known to be at high risk of HCV infection, or is symptomatic, and the physician's suspicion of HCV infection is high, HCV RNA testing is often employed and is of diagnostic value, even after an initial negative anti-HCV test result. HIV-1/HIV-2 SCREEN Date Value Ref Range Status 11/12/2023 Non-Reactive Non-Reactive Final Comment: HIV-1 p24 and HIV-1/HIV-2 Ab Not Detected. VARICELLA ZOSTER IGG ANTIBODY Date Value Ref Range Status 11/12/2023 1,545.0 >=165.0 INDEX Final HEMOGLOBIN Date Value Ref Range Status 11/12/2023 12.4 12.0 - 16.0 g/dL Final PLATELET COUNT Date Value Ref Range Status 11/12/2023 318 140 - 440 thou/cu mm Final CHLAMYDIA PROBE Date Value Ref Range Status 11/12/2023 Negative Final N GONORRHOEAE PROBE Date Value Ref Range Status 11/12/2023 Negative Final Allergies Allergen Reactions Ceclor [Cefaclor] *Unknown - Childhood Rxn OB History Para Term AB Living 1 0 0 0 0 0 SAB IAB Ectopic Multiple Live Births 0 0 0 0 0 # Outcome Date GA Lbr Jack/2nd Weight Sex Delivery Anes PTL Lv 1 Current Past Medical History: . Date ASCUS of cervix with negative high risk HPV 07/31/2016, 02/2020 Plan:Pap/HPV due 04/2024 Celiac disease 10/2022 CTS (carpal tunnel syndrome) 05/2023 bilateral steroid injections Dysfunction of eustachian tube LGSIL of cervix of undetermined significance 02/02/2019 02/02/2019 LSIL/HPV+. Polycystic ovary syndrome PONV (postoperative nausea and vomiting) Varicella without mention of complication Past Surgical History: . Laterality Date ACL RECONSTRUCTION 2009 left knee COLPOSCOPY 02/2019 MARCIA I KNEE ARTHROSCOPY 2010 left knee meniscus laparoscopic right ovarian cystectomy, pelvic washings, right oopherectomy - Right 01/16/2023 Dr. Trivedi TONSIL AND ADENOIDECTOMY 2001 Problems (from 11/12/23 to present) No problems associated with this episode. Ashley Woodward RN ....12/25/2023 4:54 PM PCOS (polycystic ovarian syndrome) 07/08/2023 Performance anxiety 01/07/2023 Celiac disease 11/28/2022 Overview (11/28/2022): Positive tissue transglutaminase antibody. Did not do endoscopy as she had already started gluten free diet and felt so much better. She did not want to reintroduce gluten in order to do the endoscopy. MARCIA I (cervical intraepithelial neoplasia I) Overview (08/27/2024): 07/2016 ASCUS/HPV Negative 01/2019 LSIL/HPV+. 02/2019 colposcopy: MARCIA I 02/2020 ASCUS/HPV negative 04/2021 NIL/HPV negative 08/2024 NIL/HPV negative Plan: HPV-based testing due 08/2027 Resolved Problems Problem Noted Date Diagnosed Date Resolved Date Depression with anxiety 11/20/201008/18 Encounters Date Type Department Care Team Description 11/13/2024 Refill [facility] [address] [place] [address] Jana Pack DO Refill Request (Nifedipine) 10/28/2024 10:25 AM CDT Office Visit [facility] [address] [place] [address] Jana Pack DO Blood Pressure 10/28/2024 Travel 10/07/2024 Refill [facility] [address] [place] [address] Hailey Dumas PA Refill Request (LABETALOL HCL ORAL) from Last 3 Months Immunizations Immunization Administration Dates Next Due DT (Age < 7 years) 02/09/2004 DTP 04/16/1993, 2,02/24/1992,11/17 DTaP 04/15/1996 HIB HbOC (HibTITER) 01/30/1993, 2,02/24/1992,11/17 HPV 9 (Gardasil 9) 01/03/2017 Hepatitis B (Peds) 11/27/2004,03/14/2004, 004 Human Papilloma Virus Vaccine 10/13/2007, 007,03/27/2007 10/06/2007 Influenza, IIV3 (Age >=3 years) 08/20/2012,05/12 MMR 02/09/2004,01/30/1993 Meningococcal Vaccine (Menactra) 03/27/2007 Oral Polio Vaccine 04/15/1996, 3,02/24/1992,11/17 RSV, Bivalent Vaccine Recons tituted (Abrysvo 120MCG/0.5mL) 05/13/2024 Td, Preservative Free (age > = 7 Years) 02/09/2004 Tdap 05/13/2024,02/02/2019,06/01/2009 Family History Medical History Relation Name Comments No Known Problems Brother Cardiomyopathy Father Hyperlipidemia Father Hypertension Father Good Health Mother Psychiatric illness Mother perhaps anxiety in the past No Known Problems Paternal Grandfather No Known Problems Paternal Grandmother Asthma No Family History Cancer-breast No Family History Cancer-colon No Family History Diabetes No Family History Heart Disease No Family History Relation Name Status Comments Brother Alive Father Alive Mother Alive Paternal Grandfather Alive Paternal Grandmother Alive Social History Tobacco Use Types Packs/Day Years Used Date Smoking Tobacco: Never Passive Smoke Exposure: Never Smokeless Tobacco: Never Tobacco Cessation:Counseling Given: Yes Alcohol Use Standard Drinks/Week Comments Yes 2 (1 standard drink = 0.6 oz pur e alcohol) PHQ-2 Answer Date Recorded PHQ-2 TOTAL SCORE 0 08/19/2024 Social Connections Answer Date Recorded Do you often feel lonely or isolated from those around you? 0 01/15/2024 Financial Resource Strain Answer Date R ecorded Difficulty of Paying Living Expenses 3 01/15/2024 Difficulty of Paying Living Expenses Not on file 01/15/2024 Food Insecurity Answer Date Recorded Do you worry your food will run out before you are able to buy more? 1 01/15/2024 Transportation Needs Answer Date Record ed Does lack of transportation keep you from medica l appointments? 1 01/15/2024 Does lack of transportation keep you from work, meetings or getting things that you need? 1 01/15/2024 Housing Stability Answer Date Recorded What is your housing situation today? 1 01/15/2024 Utilities Answer Date Recorded Do you have trouble paying f or utilities (for example, heat, electricity, water, phone)? 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 Gender Identity Not on file Sexual Orientation Not on file Obstetrics History Para Term AB IAB SAB Ectopic Multiple Livin g Live Births 2 2 1 1 1 Date Outcome GA Total Labor Labor/2nd/3rd Weight Sex Type Anes PTL Blanca A1 A5 Name Clin Para 2023 Term 39w 2d 3.49 kg (7 lb 11 oz) F Vag-V acuum N Livin g 7 9 Marjorie Valentin DO Complications: distress ,Preeclampsia (HC) Delivery Location:Hospital Last Filed Vital Signs Vital Sign Reading Time Taken Comments Blood Pressure 115/71 10/28/2024 10:45 AM CDT Pulse 65 10/28/2024 10:45 AM CDT Temperature 37.1 C (98.8 F) 08/19/2024 10:42 AM 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 TEACHER Respiratory Rate 16 01/16/2023 2:06 PM CDT Oxygen Saturation 99% 10/28/2024 10:45 AM CDT Inhaled Oxygen Concentration - - Weight 83.2 kg (183 lb 6.4 oz) 08/19/2024 10:42 AM 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 TEACHER Height 162.6 cm (5' 4) 11/12/2023 1:56 PM CDT Body Mass Index 31.48 11/12/2023 1:56 PM CDT Plan of Treatment Upcoming Encounters Date Type Department Care Team (Late st Contact Info) Description 12/20/2024 10:50 AM CDT Office Visit [facility] [address] [place] [address] Jana Pack DO [address] [place] [address] Health Maintenance Due Date Last Done Comments Pneumococcal series for age 6-49 (1 of 2 - PCV) 10/25/2010 COVID-19 vaccine series ( - season) 2024 BMI (ht and wt on same day) for age 18+ 11/11/2024 11/12/2023, 01/07/2023, 10/16/2022, Additional history exists Influenza Vaccine (Season Ended) 2025 08/20/19 13, 05/12/2009 Depression screening for age 12+ 08/19/2025 08/19/2024, 12/17/2023, 10/18/2022, Additional history exists Pap test for age 21-65 08/19/2027 , 08/19/2024, 05/03/2021, Additional history exists Tetanus booster 05/13/2034 05/13/2024, 01/16, 06/01/2009, Additional history exists HIV for age 15-65 Completed 11/12/2023, 10/16/2022 Hepatitis C screening for ag e 18-79 Completed 11/12/2023, 10/16/2022 Tdap Completed 05/13/2024, 01/16, 06/01/2009 Procedures Procedure Name Priority Date/Time Associated Diagnosis Comments HPV HIGH RISK Routine 08/19/2024 11:40 AM 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 TEACHER Cervical cancer screening ANTI HIV 1/2 Routine 11/12/2023 3:11 PM CDT Supervision of normal first , antepartum (HC) ANTI HCV Routine 11/12/2023 3:11 PM CDT Supervision of normal first , antepartum (HC) from Last 3 Months or Most Recently Relevant to Health Maintenance Results * HPV HIGH RISK (08/19/2024 11:40 AM 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 TEACHER) TYPE 16 Negative Negative 08/23/2024 2:13 PM 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 TEACHER [facility] TYPE 18 Negative Negative 08/23/2024 2:13 PM 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 TEACHER [facility] OTHER HIGH RISK TYPES Negative Negative 08/23/2024 2:13 PM 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 TEACHER [facility] Other (Cervical) Non-Blood / Unknown 08/19/2024 11:40 AM 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 TEACHER 08/20/2024 12:36 PM 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 TEACHER Narrative [facility] - 08/23/2024 2:13 PM 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 TEACHER HPV types 16, 18, 31, 33, 35, 39, 45, 51, 52, 56, 58, 59, 66 and 68 DNA were undetectable or below the pre-set threshold. Methodology: Denny Jonathon 4800 HPV Test Jana Pack DO MICROBIOLOGY Final Resu lt Performing Organization Address [facility] Co de Phone Number [facility] [address] [place] [id number], [place] * ANTI HCV (11/12/2023 3:11 PM CDT) Pathologist [facility] HEPATITIS C ANTIBODY Non-Reacti ve Non-React [place] 11/12/2023 9:14 PM CDT [facility] Comment:Please note, per www .CDC.gov: If a patient is known to be at high risk of HCV infection, or is symptomatic, and the physician's suspicion of HCV infection is high, HCV RNA testing is often employed and is of diagnostic value, even after an initial negative anti-HCV test result. Blood BLOOD SPECIMEN / Unknown Venipuncture / Unknown 11/12/2023 3:11 PM CDT 11/12/2023 3:14 PM CDT Jana Pack DO SEND OUTS Final Resu lt Performing Organization Address [facility] Co de Phone Number [facility] [address] [place] [id number], [place] * ANTI HIV 1/2 (11/12/2023 3:11 PM CDT) Pathologist [facility] HIV-1/HIV-2 SCREEN Non-Reacti ve Non-Reacti ve 11/12/2023 9:27 PM CDT [facility] Comment:HIV-1 p24 and HIV-1/ HIV-2 Ab Not Detected. Blood BLOOD SPECIMEN / Unknown Venipuncture / Unknown 11/12/2023 3:11 PM CDT 11/12/2023 3:14 PM CDT Jana Pack DO SEND OUTS Final Resu lt [facility] [address] [place] [address], from Last 3 Months or Most Recently Relevant to Health Maintenance Insurance [employer] Advance Directives * Full Code (Latest Code Status on File) Date Activated Date Inactivated Comments 01/16/2023 8:24 AM 01/16/2023 4:23 PM Question Answer Comments Code Status Discussion: Reviewed Preferences Care Teams Matcher [employer] Relationship Specialty Start Date End Date Hailey Dumas PA [address] [place] [address] PCP - General Physician Prefinish Operator 02/26/23 Darci Rodrigues DO [address] [place] [address] Endocrinology 07/08/23
[2024-12-04 18:10] VITALS: BP 148/83; PULSE 72; RESP 16; TEMP 36.7; O2SAT 96; BMI 32.4
--- NOTE | 2024-12-04 18:20 | CRLHL7_ITS ---
For Patients: As a result of the Century Cures Act, medical imaging exams and procedure reports are released immediately into your electronic medical record. You may view this report before your referring provider. If you have questions, please contact your health care provider. Indication: Trauma. Technique: Right clavicle, 2 views. Comparison: None. Findings/Impression: Bones: Acute displaced comminuted mid clavicular fracture with superior displacement of the proximal fragment. Joint spaces: Unremarkable. Soft tissues: Unremarkable. Dictated by Hussein Winston MD @ 12/04/2024 6:40:53 PM (Electronically Signed)
--- NOTE | 2024-12-04 18:39 | ED_ITS ---
HPI - General Adult General Chief complaint: Shoulder Injury/Pain Stated complaint: Collarbone injury Time Seen by Provider: 12/04/24 18:08 Source: patient Mode of arrival: ambulatory Limitations: no limitations History of Present Illness HPI narrative: 34-year-old female coming in today complaining of right shoulder pain. Patient states she was riding a horse yesterday and fell off the horse directly onto the right shoulder. Denies hitting her head or losing consciousness. Denies other injury. Complains of pain in the anterior shoulder area. Denies feeling short of breath. Related Data Home Medications ?Medication ?Instructions ?Recorded ?Confirmed norethindrone (contraceptive) 0.35 0.35 mg PO DAILY 12/04/24 12/04/24 mg tablet (Jana) Previous Rx's ?Medication ?Instructions ?Recorded escitalopram oxalate 10 mg tablet 10 mg PO DAILY #90 tabs 07/04/24 nifedipine 30 mg tablet,extended 60 mg (2 x 30 mg) PO DAILY #60 tabs 07/04/24 release 24 hr labetalol 200 mg tablet 200 mg PO BID #60 tabs 07/05/24 Allergies Allergy/AdvReac Type Severity Reaction Status Date / Time No Known Drug Allergies Allergy Verified 12/04/24 18:16 Review of Systems Status of ROS: Reports: 10 or more systems reviewed and unremarkable except as noted in History and below [facility] Medical History Vaginal delivery ?O80 - Encounter for full-term uncomplicated delivery (ICD-10) Social History What is your current living situation?: I presently have a place to live Problems where you live: no known problems In the past 12 months, utilities in danger of being shut off: no In past 12 months, lack of transportation kept you from medical appts, meetings, work, or getting things needed for daily living: no In the past 12 mos, have been you worried that your food would run out before you had money to buy more?: never true In the past 12 mos, the food you bought just didn't last and you didn't have money to buy more?: never true Smoking Status: Never smoker How often does anyone, including family, friends and others, physically hurt you : never How often does anyone, including family, friends and others, insult or talk down to you: never How often does anyone, including family, friends and others, threaten you with harm: never How often does anyone, including family, friends and others, scream or curse at you: never Exam Narrative: Exam Narrative: Well-nourished well-developed patient in no acute distress. Alert and oriented x3. Answers questions appropriately. Mood and affect are appropriate. Thoughts are goal oriented and rational. No tangential or magical thinking noted. Patient speaks in full sentences without needing to catch their breath. GCS is 15. Patient is speaking and breathing without difficulty. There is no obvious significant bleeding noted. HEENT: Normocephalic atraumatic. Pupils are equally round reactive to light. Extraocular muscles are intact. Conjunctivae are moist without any icterus noted. Moist mucous membranes. Posterior pharynx is normal. No trauma noted to the inside of the mouth. Neck is soft without any lymphadenopathy or thyromegaly. No masses are appreciated. Patient has swelling, tenderness over the right clavicle, hematoma present and ecchymosis. Tenting of the skin is present. No open wound. Cardiovascular: Heart is regular rate and rhythm S1 and S2 are present without any murmurs. Lungs: Clear to auscultation bilaterally no wheezes rhonchi or rales are appreciated. Deep breaths cause discomfort of the anterior clavicle area. Patient has no tenderness to palpation of the anterior, lateral posterior chest wall. Abdomen: Soft and nontender nondistended with normal bowel sounds. No guarding or rebound. Extremities: Bilateral lower extremities are without edema. Skin: Well perfused. Back: Normal appearance. Patient has no tenderness to palpation at the cervical, thoracic or lumbar spine. Patient has full range of motion at the neck with flexion, extension, side way bending and rotation without pain. Const: Vital Signs, click to edit/add: Vital Signs - 24 hr 12/04/24 18:10 Temperature 98.1 F Pulse Rate [Pulse Oximeter] 72 Respiratory Rate 16 Blood Pressure [Ri ght Upper Arm] 148/83 H Pulse Oximetry 96 Oxygen Delivery Me thod Room Air Course Course ED Course: X-ray of the clavicle reveals dizzy deformity. Discussed with [facility] orthopedic [facility], who recommends sling and clinic follow-up for surgical intervention. Vital Signs Vital signs: Initial Vital Signs Temperature 98.1 F 12/04/24 18:10 Temperature Source Temporal Artery Scan 12/04/24 18:10 Pulse Rate 72 12/04/24 18:10 Respiratory Rate 16 12/04/24 18:10 Blood Pressure 148/83 H 12/04/24 18:10 Blood Pressure Mean 104 12/04/24 18:10 Pulse Oximetry 96 12/04/24 18:10 Oxygen Delivery Method Room Air 12/04/24 18:10 Vital Signs Temperature 98.1 F 12/04/24 18:10 Pulse Rate 72 12/04/24 18:10 Respiratory Rate 16 12/04/24 18:10 Blood Pressure 148/83 H 12/04/24 18:10 Pulse Oximetry 96 12/04/24 18:10 Oxygen Delivery Method Room Air 12/04/24 18:10 Temperature 98.1 F 12/04/24 18:10 Pulse Rate 72 12/04/24 18:10 Respiratory Rate 16 12/04/24 18:10 Blood Pressure 148/83 H 12/04/24 18:10 Pulse Oximetry 96 12/04/24 18:10 Oxygen Delivery Method Room Air 12/04/24 18:10 Medical Decision Making MDM Narrative Medical decision making narrative: 34-year-old female with a clavicular fracture. Plan per above. Imaging Data Clavicular x-ray: Attestation: I have reviewed the pertinent imaging results. Radiologist's impression: Technique: Right clavicle, 2 views. Comparison: None. Findings/Impression: Bones: Acute displaced comminuted mid clavicular fracture with superior displacement of the proximal fragment. Joint spaces: Unremarkable. Soft tissues: Unremarkable. Discharge Plan Discharge Clinical Impression: Clavicle fracture Patient Disposition: Home, Self-Care Condition: Stable Additional Instructions: Wear sling at all times for comfort. Okay to use pain medication as needed. Okay to breast feed with this pain medication. However, if baby becomes somnolent or difficult to awake in then you should bring baby to ER immediately. On Friday the orthopedic clinic will call you to set up a follow-up appointment. If you do not hear from them by the afternoon, you should call them. Phone number will be provided to you. Eight tablets of oxycodone sent to [facility]. Prescriptions: No Action nifedipine 30 mg Tablet Extended Release 24hr 60 mg PO DAILY Qty: 60 0RF escitalopram oxalate 10 mg Tablet 10 mg PO DAILY Qty: 90 0RF labetalol 200 mg tablet 200 mg PO BID Qty: 60 2RF norethindrone (contraceptive) [Jana] 0.35 mg tablet 0.35 mg PO DAILY Follow Up/Referrals: Jana Pack DO [Primary Care Provider] - Stand Alone Forms: [facility] Info Instructions
== END 2024-12-04 19:10 | disposition home or self-care (01) ==
PROVIDERS: Emergency Provider Family Medicine; PCP Family Medicine
DX: S42.021A Displaced fracture of shaft of right clavicle, initial encounter for closed fracture (principal); V80.010A Animal-rider injured by fall from or being thrown from horse in noncollision accident, initial encounter
CPT/HCPCS: 73000; 99283; 99284